=== PATIENT | male | born 1950 | race Caucasian/White ===

== ENCOUNTER 2016-08-14 12:41 | Outpatient (CLI) | payer MEDICARE, OTHER ==
[2016-08-14] MEDS ORDERED: IOPAMIDOL-300 100 ML VIAL IVP ONE (14:28)
[2016-08-14] MEDS ORDERED: IOPAMIDOL-300 50 ML VIAL PO ONE (14:28)
== END 2016-08-14 12:42 | disposition home or self-care (01) ==
DX: N40.1 Benign prostatic hyperplasia with lower urinary tract symptoms (principal); R31.0 Gross hematuria; N20.0 Calculus of kidney; N28.1 Cyst of kidney, acquired; K76.89 Other specified diseases of liver
CPT/HCPCS: 74177; Q9967

== ENCOUNTER 2016-11-10 12:39 | Emergency (ER) | payer MEDICARE, OTHER ==
[2016-11-10] MEDS ORDERED: PHENAZOPYRIDINE 100 MG TABLET PO STA (13:15)
[2016-11-10] MEDS ORDERED: OXYBUTYNIN 5MG TABLET PO STA (13:16)
[2016-11-10] MEDS ORDERED: SULFAMETH/TRIMETH DS 800/160 MG TABLET PO STA (13:19)
[2016-11-10] MEDS ORDERED: SULFAMETH/TRIMETH DS 800/160 MG TABLET PO ONE (13:23)
[2016-11-10] MEDS ORDERED: PHENAZOPYRIDINE 100 MG TABLET PO ONE (13:24)
== END 2016-11-10 13:43 | disposition home or self-care (01) ==
DX: N30.01 Acute cystitis with hematuria (principal); Z98.890 Other specified postprocedural states
CPT/HCPCS: 51798; 81001; 87086; 99283; A9270

== ENCOUNTER 2016-11-13 13:57 | Emergency (ER) | payer MEDICARE, OTHER | END 2016-11-13 15:02 | disposition home or self-care (01) | DX: R33.9 Retention of urine, unspecified (principal) ==

== ENCOUNTER 2018-04-09 12:22 | Outpatient (CLI) | payer MEDICARE, OTHER ==
--- NOTE | 2018-04-09 16:47 | XRAY Report ---
Reason: CERVICAL SPASM PAIN,RADICULOPAHTY Procedure Date: 04/09/2018 Accession Number: [id number] / [id number] Procedure: XR - Cervical Spine Complete CPT Code: FULL RESULT: EXAM: CERVICAL SPINE RADIOGRAPHY EXAM DATE: 04/09/2018 12:59 PM. CLINICAL HISTORY: CERVICAL SPASM. PAIN. Radiculopathy. Pain on the left side of neck. COMPARISONS: None. TECHNIQUE: 5 views. FINDINGS: Alignment: Straightening of the normal cervical lordosis with anterolisthesis of C3 on C4 measuring 3 mm and C4 on C5 measuring 1.5 mm. Retrolisthesis of C5 on C6 measuring 2.5 mm. Anterolisthesis of C7 on T1 measuring 2.0 mm. Bones: No acute fracture or bony lesion. Odontoid is intact. Degenerative spurring noted greatest at C5, C6 and C7. Disks: Marked intervertebral disk space narrowing and endplate sclerosis at C5-C6 and C6-C7. Mild to moderate narrowing at C6-C7. Mild narrowing at C3-C4 and C4-C5. Facets: Moderate to marked multilevel cervical facet arthropathy. Neural Foramina: On the right, there is mild neural foraminal narrowing at C2-C3. Moderate neural foraminal narrowing at C4-C5, moderate to severe narrowing at C5-C6 and C6-C7 and moderate to severe narrowing at C7-T1. On the left, there is severe neural foraminal narrowing at C3-C4, mild to moderate narrowing at C4-C5, severe narrowing at C5-C6 and moderate to severe narrowing at C6-C7 and moderate to severe narrowing at C7-T1. Soft Tissues: Prevertebral soft tissues are normal. Lung apices are clear. IMPRESSION: 1. 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 2. Multilevel listhesis likely due to facet arthropathy. 3. Bilateral neural foraminal narrowing, as described. [facility]
== END 2018-04-09 12:23 | disposition home or self-care (01) ==
LOC: DI 12:22
PROVIDERS: ATTEND Family Medicine
DX: M50.122 Cervical disc disorder at C5-C6 level with radiculopathy (principal)
CPT/HCPCS: 72050

== ENCOUNTER 2018-10-13 14:44 | Outpatient (CLI) | payer MEDICARE, OTHER ==
--- NOTE | 2018-10-13 16:03 | XRAY Report ---
Reason: L KNEE PAIN Procedure Date: 10/13/2018 Accession Number: [id number] / [id number] Procedure: XR - Knee 3 View LT CPT Code: FULL RESULT: EXAM: LEFT KNEE RADIOGRAPHY EXAM DATE: 10/13/2018 03:39 PM. CLINICAL HISTORY: Left knee pain. COMPARISON: None. TECHNIQUE: 3 views. FINDINGS: Bones: Normal. No fractures or bone lesions. Joints: Normal. No effusion. No subluxations. Soft Tissues: Normal. No soft tissue swelling. IMPRESSION: Normal knee radiography. [facility]
== END 2018-10-13 14:45 | disposition home or self-care (01) ==
LOC: DI 14:44
PROVIDERS: ATTEND Physician Assistant
DX: M25.562 Pain in left knee (principal)